=== PATIENT | female | born 1955 | race Caucasian/White ===

== ENCOUNTER 2016-03-01 08:29 | Inpatient (IN) | payer BC ==
[~2016-03-01] VITALS: Ht 170.2 cm; Wt 68.0 kg
[2016-03-01] MEDS ORDERED: ORPHENADRINE 60 MG/2 ML AMP ONE (10:17)
[2016-03-01] MEDS ORDERED: KETOROLAC 30 MG/ML VIAL ONE (10:17)
[2016-03-01] MEDS ORDERED: ONDANSETRON 4 MG VIAL ONE (10:17)
[2016-03-01] MEDS ORDERED: DILAUDID 1 MG/ML AMP ONE (11:43)
[2016-03-01] MEDS ORDERED: CEFTRIAXONE 1 GM VIAL ONE (13:05)
[2016-03-01] MEDS ORDERED: SODIUM CHLORIDE 0.9% 100 ML IV ONE (13:06)
[2016-03-01] MEDS ORDERED: PROMETHAZINE 25 MG/ML VIAL IV PRN (14:05)
[2016-03-01] MEDS ORDERED: METHYLPRED SOD SUCC 125 MG/2 ML VIAL IV ONE (14:05)
[2016-03-01] MEDS ORDERED: MAG HYDROX 30 ML UDC PO PRN (14:05)
[2016-03-01] MEDS ORDERED: ALU/MAG/SIM 30 ML UDC PO PRN (14:05)
[2016-03-01] MEDS ORDERED: SALINE FLUSH 10 ML FLUSH PRN (14:05)
[2016-03-01] MEDS ORDERED: OXYCODONE 5 MG TAB PO PRN (14:05)
[2016-03-01] MEDS: CEFTRIAXONE 1 GM in SODIUM CHLORIDE 0.9% 50 ML IV SCH (15:19)
[2016-03-01 16:03] VITALS: BP_SYST 144; BP_SYST 160; RESP 18; TEMP 97.8; TEMP 98
[2016-03-01 16:06] VITALS: BP_SYST 140; RESP 18; TEMP 97
[2016-03-01 16:09] VITALS: Ht 170.2 cm; Wt 68.0 kg
[2016-03-01] MEDS: CARISOPRODOL 350 MG TAB PO SCH ×2 (16:11→21:44)
[2016-03-01] MEDS: OXYCODONE 5 MG TAB PO PRN ×2 (16:13→23:42)
[2016-03-01] MEDS: SODIUM CHLORIDE 0.9% FLUSH BAG 500 ML IV SCH (16:15)
[2016-03-01] MEDS: GABAPENTIN 300 MG CAP PO SCH ×2 (18:24→21:44)
[2016-03-01 19:18] VITALS: BP_SYST 132; RESP 16; TEMP 97.8
[2016-03-01] MEDS: SALINE FLUSH 10 ML FLUSH SCH (21:44)
[2016-03-02 04:16] VITALS: BP_SYST 99; RESP 16; TEMP 97.8
[2016-03-02] MEDS: OXYCODONE 5 MG TAB PO PRN (05:29)
[2016-03-02] MEDS: ONDANSETRON 4 MG VIAL IV PRN ×3 (05:39→20:27)
[2016-03-02] MEDS: PANTOPRAZOLE 40 MG TAB PO SCH (06:44)
[2016-03-02] MEDS: DILAUDID 1 MG/ML AMP IV PRN ×4 (06:56→20:19)
[2016-03-02 07:55] VITALS: BP_SYST 116; RESP 16; TEMP 97.8
[2016-03-02] MEDS: SALINE FLUSH 10 ML FLUSH SCH ×2 (08:37→20:16)
[2016-03-02] MEDS: CARISOPRODOL 350 MG TAB PO SCH ×4 (08:37→20:16)
[2016-03-02] MEDS: GABAPENTIN 300 MG CAP PO SCH ×3 (08:37→20:16)
[2016-03-02] MEDS: CEFTRIAXONE 1 GM in SODIUM CHLORIDE 0.9% 50 ML IV SCH (08:37)
[2016-03-02] MEDS ORDERED: TRAMADOL 50 MG TAB PO PRN (09:45)
[2016-03-02] MEDS ORDERED: METHYLPRED SOD SUCC 125 MG/2 ML VIAL IV ONE (09:45)
[2016-03-02 12:03] VITALS: BP_SYST 152; RESP 16; TEMP 98.2
[2016-03-02] MEDS: DILAUDID 2 MG TAB PO PRN (14:50)
[2016-03-02 15:39] VITALS: BP_SYST 127; RESP 16; TEMP 98.7
[2016-03-02 19:51] VITALS: BP_SYST 117; RESP 18; TEMP 98.5
[2016-03-02] MEDS: ENOXAPARIN 40 MG/0.4 ML SYR SUBQ SCH (20:27)
[2016-03-02 22:46] VITALS: BP_SYST 115; RESP 18; TEMP 98
[2016-03-03 03:52] VITALS: BP_SYST 113; RESP 16; TEMP 97.4
[2016-03-03] MEDS: PANTOPRAZOLE 40 MG TAB PO SCH (06:06)
[2016-03-03] MEDS: DILAUDID 2 MG TAB PO PRN ×2 (06:07→10:07)
[2016-03-03] MEDS: SODIUM CHLORIDE 0.9% FLUSH BAG 500 ML IV SCH (06:07)
[2016-03-03 07:15] VITALS: BP_SYST 164; RESP 18; TEMP 98.2
[2016-03-03] MEDS: CARISOPRODOL 350 MG TAB PO SCH ×3 (08:29→17:15)
[2016-03-03] MEDS: GABAPENTIN 300 MG CAP PO SCH ×3 (08:29→20:16)
[2016-03-03] MEDS: ENOXAPARIN 40 MG/0.4 ML SYR SUBQ SCH (08:30)
[2016-03-03] MEDS: CEFTRIAXONE 1 GM in SODIUM CHLORIDE 0.9% 50 ML IV SCH (08:36)
[2016-03-03] MEDS: SALINE FLUSH 10 ML FLUSH SCH ×2 (08:37→20:16)
[2016-03-03 11:55] VITALS: BP_SYST 123; RESP 16; TEMP 98.1
[2016-03-03] MEDS ORDERED: BISACODYL 10 MG SUPP RECTAL PRN (12:35)
[2016-03-03] MEDS ORDERED: MAGNEVIST 15ML IV ONE (13:04)
[2016-03-03 15:00] VITALS: BP_SYST 127; RESP 16
[2016-03-03] MEDS: DILAUDID 4 MG PO PRN (16:47)
[2016-03-03 19:51] VITALS: BP_SYST 145; TEMP 98.5
[2016-03-03] MEDS: POLYETHYLENE GLYCOL 17 GM PACKET PO SCH (20:16)
[2016-03-03] MEDS: DOCUSATE SOD 100 MG CAP PO SCH (20:16)
[2016-03-03 22:39] VITALS: BP_SYST 93; RESP 18; TEMP 97.8
[2016-03-04] VITALS (7 sets, daily range): BP systolic 109–150; RESP 18–20; TEMP 97.6–98.3
[2016-03-04] MEDS: DILAUDID 4 MG PO PRN ×3 (02:36→16:04)
[2016-03-04] MEDS: ONDANSETRON 4 MG VIAL IV PRN ×2 (02:49→08:02)
[2016-03-04] MEDS: SODIUM CHLORIDE 0.9% FLUSH BAG 500 ML IV SCH (06:00)
[2016-03-04] MEDS: PANTOPRAZOLE 40 MG TAB PO SCH (06:08)
[2016-03-04] MEDS ORDERED: DEXAMETHASONE 10 MG/ML VIAL IV ONE (07:40)
[2016-03-04] MEDS: SALINE FLUSH 10 ML FLUSH SCH ×2 (07:55→21:10)
[2016-03-04] MEDS: MELOXICAM 7.5 MG TAB PO SCH (08:57)
[2016-03-04] MEDS: DOCUSATE SOD 100 MG CAP PO SCH ×2 (08:58→21:03)
[2016-03-04] MEDS: POLYETHYLENE GLYCOL 17 GM PACKET PO SCH ×3 (08:58→21:10)
[2016-03-04] MEDS: ACETAMINOPHEN 325 MG TAB PO PRN (14:58)
[2016-03-05] MEDS: ACETAMINOPHEN 325 MG TAB PO PRN ×3 (02:37→11:57)
[2016-03-05] MEDS: TRAMADOL 50 MG TAB PO PRN ×3 (02:39→11:56)
[2016-03-05 03:37] VITALS: BP_SYST 144; RESP 18; TEMP 98.6
[2016-03-05] MEDS: SODIUM CHLORIDE 0.9% FLUSH BAG 500 ML IV SCH (05:52)
[2016-03-05] MEDS: PANTOPRAZOLE 40 MG TAB PO SCH (06:08)
[2016-03-05 07:00] VITALS: BP_SYST 161; RESP 16; TEMP 98.4
[2016-03-05] MEDS: MELOXICAM 7.5 MG TAB PO SCH (08:14)
[2016-03-05] MEDS: DOCUSATE SOD 100 MG CAP PO SCH (08:14)
[2016-03-05] MEDS: POLYETHYLENE GLYCOL 17 GM PACKET PO SCH ×2 (08:16→15:14)
[2016-03-05] MEDS: SALINE FLUSH 10 ML FLUSH SCH (08:16)
[2016-03-05 11:00] VITALS: BP_SYST 161; RESP 18; TEMP 98.1
[2016-03-05 15:00] VITALS: BP_SYST 140; RESP 16; TEMP 98
[2016-03-05 17:08] VITALS: BP_SYST 140; RESP 16; TEMP 98
== END 2016-03-05 18:05 | disposition home or self-care (01) | DRG 552 ==
LOC: ENRESERVDT → ENRESERVTM → ER 08:29 → EMR 14:04 → 2NO 15:13 → ENPENDDIS 03-02 19:56 → OBSVTOIN 03-02 19:56
PROVIDERS: ADMIT Internal Medicine; ATTEND Internal Medicine
CPT/HCPCS: 72100; 72158; 96365; 96375

== ENCOUNTER 2016-03-07 17:33 | Emergency (ER) | payer BC ==
[2016-03-08] MEDS ORDERED: PROMETHAZINE 25 MG TAB ONE (00:41)
== END 2016-03-08 04:16 | disposition home or self-care (01) ==
LOC: ER 17:33
DX: R11.2 Nausea with vomiting, unspecified (principal)
CPT/HCPCS: 36415; 70450; 80053; 81001; 83690; 85025; 87088